=== PATIENT | male | born 1995 | race Caucasian/White ===

== ENCOUNTER 2023-04-30 13:20 | Emergency (ER) | payer BC, SELFPAY ==
[2023-04-30 13:21] VITALS: BP 126/80
--- NOTE | 2023-04-30 14:04 | ED.GENMED ---
History of Present Illness
General
Chief Complaint: Fall
Source: patient
Time Seen by Provider: 04/30/23 13:54
Travel History
Have you had any contact with someone who has COVID-19?: No
Do you have any symptoms of coronavirus? Fever > 100 degrees, chills, cough, shortness of breath, sore throat, loss of taste or smell, muscle aches, or headache?: No
History of Present Illness
History of Present Illness:
27-year-old male with no significant past medical history presents emergency department after slipping and falling last night on a salted road surface stating he fell face first into the ground injuring the right side of his face and chipping
multiple teeth as well as injuring his right lower back. Patient awoke today due to continued pain to the right side of his jaw and right lower back prompting him to come to the ER for further evaluation. There is no reported loss of
consciousness, vomiting, visual disturbances, focal weakness or numbness or any other concerns. Patient denies any use of anticoagulants. Patient has yet to take anything for pain prior to arrival today.
Past History
Past History
ED Past Medical History: None
ED Past Surgical History: None
Social History
Tobacco: Non-smoker
Alcohol: Occasional
Drug: None
Personal: Single
Living: with family
Employment: Employed
Review of Systems
Review of Systems
All Other Systems: ROS reviewed and negative except as documented in HPI and ROS
Phy Exam
Physical Exam
Physical Exam:
GENERAL: Alert , in no apparent distress
EYE: conjunctiva clear
Head: Normocephalic atraumatic
NECK: Supple, no midline tenderness
ENT: mmm. Patient has a fractured lateral incisor on the upper right jaw. The central incisor for right and left both are chipped but there is no displacement at the base of either tooth. No intraoral lacerations or active bleeding
LUNGS: no acute respiratory distress
Back: Full range of motion. No focal midline tenderness, mild right-sided paralumbar tenderness to palpation
NEUROLOGICAL: Alert and oriented
SKIN: Warm and dry, skin intact.
MUSCULOSKELETAL: well perfused.
PSYCH: Normal and appropriate interaction.
Scores
Heart Failure Risk
Heart Failure Risk Score: Not Applicable
Heart Score for Chest Pain Patients
STEMI patient?: Not applicable
Withdrawal Assessment of Alcohol
Withdrawal Assessment Completed?: Not applicable
Course
Orders/Labs/Results
Orders:
Orders
04/30/23 14:03
CT Facial Bones W/o Iv Contras Urgent
Comment:
Reason For Exam: fall, right sided mandible pain
Ibuprofen [Motrin] 600 mg PO NOW STA
CR Lumbar Spine Comp Min 4 Vw* Urgent
Comment:
Reason For Exam: fall, right sided lower back pain
Vital Signs
Initial and Last Documented VS:
Initial Vital Signs
Temp Pulse Resp BP Pulse Ox
98.3 F 79 18 126/80 100
04/30/23 13:21 04/30/23 13:21 04/30/23 13:21 04/30/23 13:21 04/30/23 13:21
Last Documented Vital Signs
Temp Pulse Resp BP Pulse Ox
98.3 F 79 18 126/80 100
04/30/23 13:21 04/30/23 13:21 04/30/23 13:21 04/30/23 13:21 04/30/23 13:21
MDM/Problems Addressed
Differential Diagnosis Includes:
Tooth fracture, chipped tooth, possible mandibular fracture, concussion, lumbar contusion/strain
MDM/Problems Addressed:
27-year-old male present emergency department for evaluation following an accidental fall last night. I suspect cracked tooth and tooth fracture are the most likely diagnoses. Patient did have some mild tenderness over the inferior portion of the
right side of the mandible but was able to masticate without any difficulty. Will obtain CT of the facial bones to further evaluate. Will also obtain an x-ray of the lumbosacral region given the reported right-sided lower back pain. Motrin
ordered for pain control. Reassessment following. Patient notes that he does have a dentist and already placed a call to try and obtain an appointment for next week.
*Radiology
Radiology exam reviewed: radiology read reviewed
*Pulse Oximetry
Patient hypoxic: no
*Critical Care Note
Total Time (30-74mins, 75-104mins- exclusive of procedures): Not Applicable
Patient Management
Escalation/DeEscalation of care consider admission/obs:
Patient's imaging studies are unremarkable. Safe for discharge home. Will follow-up with dentist as scheduled. Aware of return precautions to the emergency department.
ED Attending Note
-
Portions of this chart may have been created with voice recognition software.� Occasional wrong word or��sound alike� substitutions may have occurred due to the inherent limitations of voice recognition software.
Discharge Plan
Departure
Patient Disposition: Home (Routine Discharge)
Date of Disposition: 04/30/23
Time of Disposition: 14:59
Patient with high blood pressure during this ER visit?: No
Discharge Problem:
Chipped tooth, Jaw pain, Back pain
Instructions: Concussion, Adult (DC)
Referrals:
Nolan German DO [Family Provider] -
Interventions
Interventions:
*Risk Screen - Suicide Last Done: 04/30/23 13:25
*General Assessment Last Done: 04/30/23 13:25
*Neglect/Abuse Screening Last Done: 04/30/23 13:25
[2023-04-30] MEDS: MOTRIN 600 MG PO (14:46)
== END 2023-04-30 15:20 | disposition home or self-care (01) ==
LOC: EMR 13:20
PROVIDERS: EMERGENCY PHYSICIAN Emergency Medicine; FAMILY PHYSICIAN Family Medicine
DX: S02.5XXA Fracture of tooth (traumatic), initial encounter for closed fracture (principal); R68.84 Jaw pain; M54.9 Dorsalgia, unspecified; W01.0XXA Fall on same level from slipping, tripping and stumbling without subsequent striking against object, initial encounter
CPT/HCPCS: 99284; 70486; 72110